=== PATIENT | male | born 1975 | race Caucasian/White ===

== ENCOUNTER 2023-05-01 10:50 | Emergency (ER) | payer OTHER, SELFPAY ==
[2023-05-01 10:56] VITALS: BP 186/102; PULSE 78; RESP 16; TEMP 36.7; O2SAT 99; BMI 32.2
--- NOTE | 2023-05-01 11:06 | XR_ITS ---
The [address] [address] Patient Name: MUNA OBREGON MRN: [id number] date: 1975 Sex: M Assigned Patient Location: ER Current Patient Location: ED.MAIN Accession/Order Number: [id number] Exam Date: 05/01/2023 11:13 Report Date: 05/01/2023 11:37 At the request of: KAMILLA LA Procedure: XR shoulder LT min 2V PROCEDURE: XR shoulder LT min 2V COMPARISON: None. HISTORY: decreased ROM, likely rotator cuff issue FINDINGS: BONES:No acute fracture or dislocation. The glenohumeral joint is intact. Moderate acromioclavicular joint osteoarthritis with 6 mm of subacromial spurring SOFT TISSUES:Negative. No visible soft tissue swelling. EFFUSION:None visible. OTHER: Negative. XR/XR shoulder LT min 2V IMPRESSION: Acromioclavicular joint osteoarthritis with subacromial spurring. Consider impingement syndrome Electronically authenticated by: WALT STRICKLAND Date: 05/01/2023 11:37
--- NOTE | 2023-05-01 11:06 | PC.NURSE ---
left shoulder pain and unable to lift left arm fully above head unless pt uses right hand to assist. No bruising or swelling observed, no obvious displacement and ER DR assessment complete.
--- NOTE | 2023-05-01 11:07 | ED.UPPEXIN1 ---
HPI - Extremity Injury (Upper) General Chief Complaint: Extremity Injury, Upper Stated Complaint: UPPER EXTREMITY INJURY Time Seen by Provider: 05/01/23 10:58 Source: patient Mode of arrival: walk-in History of Present Illness HPI narrative: 47-year-old male presents for an issue with his left shoulder. Since last week he's had difficulty lifting his arm up away from his body. It goes a little ways but not very far. There was no trauma or unusual activity. He doesn't have pain in the elbow or the contralateral shoulder. He's never had issues with his left shoulder. He does not have pain. Related Data Home Medications Medication Instructions Recorded Confirmed No Known Home Medications 05/01/23 05/01/23 Allergies Allergy/AdvReac Type Severity Reaction Status Date / Time aspirin Allergy Severe Verified 05/01/23 11:02 Penicillins Allergy Severe Verified 05/01/23 11:02 Review of Systems ROS Narrative A ten point review of systems is negative except as noted above. Exam Narrative Exam Narrative: Nurses note and vital signs reviewed and patient is not hypoxic. General: The patient appears well and in no apparent distress. Patient is resting comfortably on cart. Skin: Warm, dry, no pallor noted. There is no rash noted. Head: Normocephalic, atraumatic Eye: Normal conjunctiva, no drainage Ears, Nose, Mouth, and Throat: oral mucosa is moist. Nares patent. Cardiovascular: Regular Rate and Rhythm Respiratory: Patient is in no distress, no accessory muscle use, lungs are clear to auscultation, no wheezing, rales or rhonchi Back: non-tender GI: soft and nontender Musculoskeletal: left arm is not swollen. He has difficulty with arm abduction. Radial pulse 2+. Wrist and elbow have full range of motion. No deformity bruising or rash in the shoulder area. Neurological: A&O, normal speech Psychiatric: Cooperative Constitutional Vital Signs, click to edit/add: Last Vital Signs Temp 98.0 F 05/01/23 10:56 Pulse 78 05/01/23 10:56 Resp 16 05/01/23 10:56 BP 186/102 H 05/01/23 10:56 Pulse Ox 99 05/01/23 10:56 O2 Del Method Room Air 05/01/23 11:07 Course Vital Signs Vital signs: Vital Signs Temperature 98.0 F 05/01/23 10:56 Pulse Rate 78 05/01/23 10:56 Respiratory Rate 16 05/01/23 10:56 Blood Pressure 186/102 H 05/01/23 10:56 Pulse Oximetry 99 05/01/23 10:56 Oxygen Delivery Method Room Air 05/01/23 10:56 Temperature 98.0 F 05/01/23 10:56 Pulse Rate 78 05/01/23 10:56 Respiratory Rate 16 05/01/23 10:56 Blood Pressure 186/102 H 05/01/23 10:56 Pulse Oximetry 99 05/01/23 10:56 Oxygen Delivery Method Room Air 05/01/23 11:07 MDM - Extremity Injury (Upper) MDM Narrative Medical decision making narrative: my clinical impression is that he has a rotator cuff injury. The need for follow-up with orthopedics and the possible need for physical therapy was discussed. Treatment diagnosis and follow-up were discussed with the patient. Differential Diagnosis Differential diagnosis: Likely other (rotator cuff injury, calcific tendinitis, fracture, arthritis) Imaging Data left shoulder x-ray: My impression: no acute findings Discharge Plan Discharge Chief Complaint: Extremity Injury, Upper Clinical Impression: Injury of left rotator cuff Patient Disposition: Home, Self-Care Time of Disposition Decision: 11:25 Condition: Good Mode of Transportation: Private Vehicle Prescriptions / Home Meds: No Action No Known Home Medications Instructions: Rotator Cuff Injury (ED), Rotator Cuff Injury Exercises (DC) Additional Instructions: Follow-up with Dr. Mast Stand Alone Forms: Portal Instructions
[2023-05-01 11:53] VITALS: BP 168/90
== END 2023-05-01 11:55 | disposition home or self-care (01) ==
LOC: ER 11:36
PROVIDERS: Emergency Provider Emergency Medicine
DX: S46.002A Unspecified injury of muscle(s) and tendon(s) of the rotator cuff of left shoulder, initial encounter (principal); X58.XXXA Exposure to other specified factors, initial encounter
CPT/HCPCS: 73030; 99283

== ENCOUNTER 2023-06-19 09:23 | Outpatient (RCR) | payer OTHER, SELFPAY | END 2023-07-14 16:10 | disposition home or self-care (01) | LOC: PT 09:23 | PROVIDERS: Visit Provider Orthopaedic Surgery | DX: M25.512 Pain in left shoulder (principal) | CPT/HCPCS: 97110; 97140; 97161 ==

== ENCOUNTER 2023-07-11 10:54 | Emergency (ER) | payer OTHER, SELFPAY ==
[2023-07-11] VITALS (8 sets, daily range): BP systolic 150–188; BP diastolic 90–118; PULSE 69–117; RESP 10–22; TEMP 36.8; O2SAT 99; BMI 32.2
--- OUTSIDE RECORDS SUMMARY | 2023-07-11 11:07 | XMS_ITS | CCD ---
Author Organization [facility] Care Team Providers Care Drawing Frame Tender Name Role Phone REQUEST, DR NONE LISTED Primary Care Unavaila johana MUIR, DR TORO Admitting Unavailable GRILLIS, DR TORO Attending Unavailable GRILLIS, DR TORO Consulting Unavailable MARKER, DR LUCAS Consulting Unavailable LARA, MARIEL Consulting Unavailable WIECEK, DR NAZARIO Mcghee Admitting Unavailable MCDONALD, DR PAMELLA Lynn Consulting Unavailable REQUEST, DR SIMPSON LISTED Primary Care Unavaila ble WIECEK, DR NAZARIO Mcghee Attending Unavailable REINECK, DR BLU Ramirez Consulting Unavailabl e WIECEK, DR NAZARIO Mcghee Consulting Unavailable AGUBOSIM, ROSS Consulting Unavailable Allergies Allergy Classification Reported Allergen(s) Allergy Type Date of Onset Reaction(s) Facility Aspirin (1 source) Aspirin Drug Allergy 01-12-2016 [facility] Penicillins (antibiotic) (1 source) Penicillins Drug Allergy 01-12-2016 [facility] Repository Problems Active Problems Problem Classification Problem Date Documented Da te Episodic/Chronic Essential hypertension (1 source) Essential (primary) hypertension; Translations: [ESSENTIAL PRIMARY HYPERTENSION] Onset: 08-10-2020 Chronic Other injuries and conditions due to external causes (4 sources) Food in esophagus causing other injury, initial encounter; Translations: [FOOD ESOPH CAUS OTH INJURY INIT ENC] Onset: 07-24-2020 Episodic Other nutritional; endocrine; and metabolic disorders (1 source) Morbid (severe) obesity due to excess calories; Translations: [MORBID SEVERE OBES D/T EXCESS KARLA] Onset: 08-10-2020 Chronic Other nutritional; endocrine; and metabolic disorders (1 source) Body mass index (BMI) 37.0-37.9, adult; Translations: [BODY MASS INDEX BMI 37.0-37.9 ADULT] Onset: 08-10-2020 Chronic Substance-related disorders (1 source) Cannabis use, unspecified, uncomplicated; Translations: [CANNABIS USE UNS UNCOMPLICATED] Onset: 08-10-2020 Episodic Unclassified (1 source) ESOPHAGITIS UNSPEC WITHOUT BLEEDING; Translations: [ESOPHAGITIS UNSPEC WITHOUT BLEEDING] Onset: 02-25-2020 Viral infection (1 source) COVID-19; Translations: [COVID-19] Onset: 08-10-2020 Past or Other Problems Problem Classification Problem Date Documented Da te Episodic/Chronic E Codes: Natural/environment (1 source) Exposure to other specified factors, initial encounter; Translations: [EXPOSURE OTHER SPEC FACTORS INITIAL] Onset: 02-25-2020 Episodic Residual codes; unclassified (1 source) Acquired absence of other specified parts of digestive tract; Translations: [ACQ ABSENCE OTH PART DIGESTV TRACT] Onset: 02-25-2020 Episodic Screening and history of mental health and substance abuse codes (1 source) Personal history of nicotine dependence; Translations: [PERSONAL HISTORY OF NICOTINE DEPEND] Onset: 02-25-2020 Episodic Results Test Name Value Interpretation Reference Range Facility RESPIRATORY PANEL PLUSon Adenovirus Not detected Normal NOT DETECTED [facility] Comment on above: Performed By: #### R SPLUS #### [facility] [address] [place] [address] Domingo Lina B. Parapertusis Not detected Normal NOT DETECTED [facility] Comment on above: Performed By: #### R SPLUS #### [facility] [address] [place] [address] Domingo Lina B. Pertussis Not detected Normal NOT DETECTED [facility] Comment on above: Performed By: #### R SPLUS #### [facility] [address] [place] [address] Domingo Lina Chlamydia Pneumoniae Not detected Normal NOT DETECTED [facility] Comment on above: Performed By: #### R SPLUS #### [facility] [address] [place] [address] Domingo Lina Coronavirus 229E Not detected Normal NOT DETECTED [facility] Comment on above: Performed By: #### R SPLUS #### [facility] [address] [place] [address] Domingo Lina Coronavirus HKU1 Not detected Normal NOT DETECTED [facility] Comment on above: Performed By: #### R SPLUS #### [facility] [address] [place] [address] Domingo Lina Coronavirus NL63 Detected Abnormal NOT DETECTED [facility] Comment on above: Performed By: #### R SPLUS #### [facility] [address] [place] [address] Domingo Lina Coronavirus OC43 Not detected Normal NOT DETECTED [facility] Comment on above: Performed By: #### R SPLUS #### [facility] [address] [place] [address] Domingo Lina Influenza A H1 2009 Not detected Normal NOT DETECTED [facility] Comment on above: Performed By: #### R SPLUS #### [facility] [address] [place] [address] Domingo Lina Influenza B Not detected Normal NOT DETECTED [facility] Comment on above: Performed By: #### R SPLUS #### [facility] [address] [place] [address] Domingo Lina Metapneumovirus Not detected Normal NOT DETECTED [facility] Comment on above: Performed By: #### R SPLUS #### [facility] [address] [place] [address] Domingo Lina Mycoplas. Pneumoniae Not detected Normal NOT DETECTED [facility] Comment on above: Performed By: #### R SPLUS #### [facility] [address] [place] [address] Domingo Lina Parainfluenza 1 Not detected Normal NOT DETECTED [facility] Comment on above: Performed By: #### R SPLUS #### [facility] [address] [place] [address] Domingo Lina Parainfluenza 2 Not detected Normal NOT DETECTED [facility] Comment on above: Performed By: #### R SPLUS #### [facility] [address] [place] [address] Domingo Lina Parainfluenza 3 Not detected Normal NOT DETECTED [facility] Comment on above: Performed By: #### R SPLUS #### [facility] [address] [place] [address] Domingo Lina Parainfluenza 4 Not detected Normal NOT DETECTED [facility] Comment on above: Performed By: #### R SPLUS #### [facility] [address] [place] [address] Domingo Lina Rhino/Enterovirus Not detected Normal NOT DETECTED [facility] Comment on above: Performed By: #### R SPLUS #### [facility] [address] [place] [address] [place] RP2 Header 1 RESPIRATORY PANEL: VIRUSES Normal [facility] Comment on above: Performed By: #### R SPLUS #### [facility] [address] [place] [address] Domingo Lina RP2 Header 2 RESPIRATORY PANEL: BACTERIA Normal [facility] Comment on above: Performed By: #### R SPLUS #### [facility] [address] [place] [address] [place] RP2 Header 4 EUA SEE BELOW Normal [facility] Comment on above: Result Comment: This test is not yet approved or cleared by the [place] FDA. When there are no FDA-approved or cleared tests available, and other criteria are met, FDA can make tests available under an emergency access mechanism called an Emergency Use Authorization (EUA). The EUA for this test is supported by the [place] Manager of Health and Human Service?s (HHS?s) declaration that circumstances exist to justify the emergency use of in vitro diagnostics for the detection and/or diagnosis of the virus that causes COVID-19. This EUA will remain in effect (meaning this test can be used) for the duration of the COVID-19 declaration justifying emergency of IVDs, unless it is terminated or revoked by FDA (after which the test may no longer be used). Performed By: #### R SPLUS #### [facility] [address] [place] [address] Domingo Lina RSV Not detected Normal NOT DETECTED [facility] Comment on above: Performed By: #### R SPLUS #### [facility] [address] [place] [address] Domingo Lina SARS-CoV-2 (COVID-19) RNA DEAN+probe Ql (Unsp spec) Detected Invalid Interpretation Code NOT DETECTED [facility] Comment on above: Performed By: #### R SPLUS #### [facility] [address] [place], [place] [address] [place]ingo [place] Encounters Encounter Date Encounter Type Care Provider Facility Start: 07-24-2020 End: 07-25-[address] NAZARIO CABRERA Facility: Start: 02-18-2020 End: 02-19-2020 ambulatory NONE LISTED REQUEST Facility:[facility]1 Payers Date Payer Category Payer Unknown [id number] 1975 Unknown [id number] 1960 Unknown [id number] Clinical Note 07-24-2020 Note Date & Type Note Facility 07-24-2020 Note The [place], [place] NAME: MUNA OBREGON DATE OF : MEDICAL REC#: [id number] TIRE TRIMMER HAND: [id number] ADMIT DATE: 07/24/2020 19:35:00 QUARANTINE OFFICER DATE: 07/26/2020 07:00 DICTATING PHYSICIAN: NAZARIO CABRERA DICTATION DATE: 07/24/2020 19:00 HISTORY AND PHYSICAL EXAMINATION CHIEF COMPLAINT: Food bolus in the esophagus. HISTORY OF PRESENT ILLNESS: The patient is a 45 year-old man who presents to the ER with complaints of a food bolus in the esophagus, he was eating chicken nuno. The patient had a similar episode in January of [address] Muir took him to the Endoscopy Suite and he underwent removal of the food bolus. DICTATION ENDED HERE . . . . .New Dictation was created due to dictation ending. Electronically Authenticated and Edited by: Nazario Cabrera MD on 07/30/2020 06:51 AM EDT IFC Signed and Approved by: DR NAZARIO CABRERA . 07/30/2020 06:51:00 [facility] Clinical Note 07-24-2020 Note Date & Type Note Facility 07-24-2020 Note OPERATIVE NOTE OPERATION DATE: 07-24-20 ANESTHETIC:Monitored anesthesia care. PREOPERATIVE DIAGNOSIS:Food bolus in the esophagus. POSTOPERATIVE DIAGNOSIS:Food bullous in the upper third of the esophagus (chicken). PROCEDURE NAME:EGD with dislodgement of food bolus. DISPOSITION: To the PACU in fair condition. INDICATIONS: The psi a s 45 year-old man who was eating chicken nuno and the chicken got caught in his throat. He had a similar episode of eating chicken with food impaction in the esophagus requiring and EGD in January of 2020 that was done by Dr. Muir. PROCEDURE: The patient was brought into the OR, he was kept in the supine position with the head of his bed at approximately 45 degrees. He was intubated by the anesthesiologist. After sedation, the gastroscope was then advanced into the oropharynx and there was no evidence of any lesions. The patient has extremely poor dentition. The scope was then advanced into the esophagus. In the upper third there was chicken that was easily pushed into the stomach. There was irrigation of the esophagus from the food bolus. Upon entering the stomach the gastric mucosa was mildly inflamed, there was no evidence of any ulcers of erosions. The endoscope was advanced through the pylorus and into the duodenum. The duodenal bulb and sweep appeared normal. The scope was then removed. There was no evidence of any gastric or esophageal varices. No strictures in the esophagus. The patient tolerated the procedure without any difficulty and he needs to chew his food longer, cut the pieces of the food smaller and drink fluids even prior to eating, especially due to his poor dentition. [facility] Signed and Approved by: DR NAZARIO CABRERA . 07/30/2020 06:49:00 [facility] Summary Purpose Family History No Family History Records Found Advance Directives No Advanced Directives Records Found Additional Source Comments (unrecognized sect ion and content) No Status Records Found INFORMATION SOURCE (unrecogn ized section and content) DATE CREATED AUTHOR 08/18/2020 [facility] FOR RECORDS PERTAINING TO PATIENTS WHO ARE OR HAVE BEEN ENROLLED IN A CHEMICAL DEPENDENCY/SUBSTANCEABUSE PROGRAM, SOME INFORMATION MAY BE OMITTED. This clinical summary was aggregated from multiple sources. Caution should be exercised in using it in the provision of clinical care. This summary normalizes information from multiple sources, and as a consequence, information in this document may materially change the coding, format and clinical context of patient data. In addition, data may be omitted in some cases. CLINICAL DECISIONS SHOULD BE BASED ON THE PRIMARY CLINICAL RECORDS. [facility]. provides no warranty or guarantee of the accuracy or completeness of information in this document.
--- NOTE | 2023-07-11 11:09 | ECG_ITS ---
The [facility] Test Date: 2023-07-11 Pat Name: MUNA OBREGON Department: Room: - Gender: Male Gum Remover: : 1975 Requested By: Order Number: [id number] Reading MD: YUDI FARIAS Measurements Intervals [place] Rate: 75 P: 26 KS: 156 QRS: 37 QRSD: 96 T: 30 QT: 360 QTc: 388 Interpretive Statements 1100 Sinus rhythm 1102 Sinus arrhythmia 9110 normal ECG Compared to ECG 02/18/2020 20:52:21 No significant changes Electronically Signed On 07-12-2023 6:45:35 EDT by YUDI FARIAS
--- NOTE | 2023-07-11 11:09 | CT_ITS ---
The [address] [address] Patient Name: MUNA OBREGON MRN: [id number] date: 1975 Sex: M Assigned Patient Location: ER Current Patient Location: ER Accession/Order Number: [id number] Exam Date: 07/11/2023 11:25 Report Date: 07/11/2023 11:45 At the request of: KAMILLA LA Procedure: CT head/brain wo con EXAM: CT head/brain wo con HISTORY: Tinnitus COMPARISON: None. TECHNIQUE: Axial CT images were obtained of the head without intravenous contrast. Multiplanar reconstructions were performed. FINDINGS: No acute intracranial hemorrhage. No acute loss of figueroa/white differentiation. The ventricles and sulci are normal in appearance. The osseous structures are unremarkable. No soft tissue abnormality identified. The paranasal sinuses and mastoid air cells are clear. CT/CT head/brain wo con IMPRESSION: 1. No acute intracranial abnormality. Electronically authenticated by: ELVER GONZALES Date: 07/11/2023 11:45
--- NOTE | 2023-07-11 11:09 | ED_ITS ---
HPI - Ear Problem General Chief complaint: Ear Stated complaint: RINGING IN EARS Time Seen by Provider: 07/11/23 11:04 Source: patient Mode of arrival: walk-in Limitations: no limitations History of Present Illness HPI Narrative: 48-year-old male presents for intermittent ringing in his ears that he has had for 5 days. He has never had issues like this before. No fever or cough or vomiting. He has not taken any aspirin. He is on no medications. Blood pressure was noted to be elevated at triage. He does not have a headache. No cough or sore throat. Related Data Home Medications ?Medication ?Instructions ?Recorded ?Confirmed No Known Home Medications 05/01/23 07/11/23 Allergies Allergy/AdvReac Type Severity Reaction Status Date / Time aspirin Allergy Severe Verified 05/01/23 11:02 Penicillins Allergy Severe Verified 05/01/23 11:02 Review of Systems ROS Narrative A ten point review of systems is negative except as noted above. Exam Narrative Exam Narrative: Nurses note and vital signs reviewed and patient is not hypoxic. General: The patient appears well and in no apparent distress. Patient is resting comfortably on cart. Skin: Warm, dry, no pallor noted. There is no rash noted. Head: Normocephalic, atraumatic Eye: Normal conjunctiva, no drainage Ears, Nose, Mouth, and Throat: oral mucosa is moist. Nares patent. TMs are nonerythematous. External canals are normal in appearance. No cerumen present. Cardiovascular: Regular Rate and Rhythm Respiratory: Patient is in no distress, no accessory muscle use, lungs are clear to auscultation, no wheezing, rales or rhonchi Back: non-tender, no CVA tenderness bilaterally to percussion. GI: Soft and nontender Musculoskeletal: The patient has no evidence of calf tenderness, no pitting edema, symmetrical pulses noted bilaterally Neurological: A&O, normal speech Psychiatric: Cooperative Constitutional Vital Signs, click to edit/add: Last Vital Signs Temp 98.2 F 07/11/23 10:59 Pulse 80 07/11/23 10:59 Resp 20 07/11/23 10:59 BP 188/118 H 07/11/23 10:59 Pulse Ox 99 07/11/23 10:59 O2 Del Method Room Air 07/11/23 10:59 Course Vital Signs Vital signs: Vital Signs Temperature 98.2 F 07/11/23 10:59 Pulse Rate 80 07/11/23 10:59 Respiratory Rate 20 07/11/23 10:59 Blood Pressure 188/118 H 07/11/23 10:59 Pulse Oximetry 99 07/11/23 10:59 Oxygen Delivery Method Room Air 07/11/23 10:59 Temperature 98.2 F 07/11/23 10:59 Pulse Rate 80 07/11/23 10:59 Respiratory Rate 20 07/11/23 10:59 Blood Pressure 188/118 H 07/11/23 10:59 Pulse Oximetry 99 07/11/23 10:59 Oxygen Delivery Method Room Air 07/11/23 10:59 Medical Decision Making MDM Narrative Medical decision making narrative: He has a normal physical exam and a negative workup. His blood pressure has improved without intervention here. I discussed that blood pressure with him and he is going to obtain a PCP, list provided. He was instructed to have blood pressure rechecked within a week and if it stays elevated he may need to be on blood pressure medication. Treatment diagnosis and follow-up were discussed with the patient. Differential Diagnosis Differential Diagnosis: Hypertension, tinnitus, otitis media, cerumen impaction Lab Data Lab results reviewed: Yes I reviewed the patient's lab results Lab results narrative: Normal CBC and BMP Imaging Data CT scan - head: Radiologist's impression: ITS Impressions Head CT 07/11/23 11:09 IMPRESSION: 1. No acute intracranial abnormality. Electronically authenticated by: ELVER GONZALES Date: 07/11/2023 11:45 ECG Data Attestation: I personally reviewed and interpreted this ECG as follows: (EKG on my interpretation shows normal sinus rhythm with a rate of 75.) Discharge Plan Discharge Stand Alone Forms: Portal Instructions Chief Complaint: Ear Clinical Impression: Elevated blood pressure reading, Tinnitus Patient Disposition: Home, Self-Care Time of Disposition Decision: 12:36 Condition: Good Mode of Transportation: Private Vehicle Prescriptions / Home Meds: No Action No Known Home Medications Print Language: Mongolian Instructions: Hypertension (ED), Tinnitus (ED) Additional Instructions: Follow-up with PCP, list provided Referrals: Physician,Non-Staff, MD [Primary Care Provider] - 1 week
[2023-07-11 11:25] LABS: Basophils Percent Auto 0.6 % (0.2-2.0); Eosinophils Percent Auto 0.2 % (0.9-7.0); Hematocrit 43.7 % (42.0-54.0); Hemoglobin 14.5 g/dL (14.0-18.0); Immature Granulocytes Abs Auto 0.01 10^3/uL (0.00-0.03); Immature Granulocytes Pct Auto 0.2 % (0.0-0.5); Lymphocytes Absolute Auto 1.7 10^3/uL (1.2-3.8); Lymphocytes Percent Auto 26.4 % (20.5-60.0); Mean Corpuscular HGB Conc 33.2 g/dL (29.9-35.2); Mean Corpuscular Hemoglobin 30.9 pg (25.9-34.0); Mean Corpuscular Volume 93.2 fL (80.0-94.0); Mean Platelet Volume 9.6 fL (9.5-13.5); Monocytes Absolute Auto 0.4 10^3/uL (0.3-0.8); Monocytes Percent Auto 6.2 % (1.7-12.0); Neutrophils Absolute Auto 4.2 10^3/uL (1.4-6.5); Neutrophils Percent Auto 66.4 % (43.0-75.0); Platelet Count 229 10^3/uL (150-450); Red Blood Count 4.69 10^6/uL (4.70-6.10); White Blood Count 6.3 10^3/uL (4.0-11.0)
[2023-07-11 11:42] LABS: Anion Gap 15.6; BUN Creatinine Ratio 8.7; Calcium 9.5 mg/dL (8.5-10.1); Carbon Dioxide 26.3 mmol/L (21.0-32.0); Chloride 102 mmol/L (98-107); Estimated GFR (African America >60 (>=60); Estimated GFR (Non-African Ame >60 (>=60); Glucose 98 mg/dL (74-106); Potassium 3.9 mmol/L (3.5-5.1); Sodium 140 mmol/L (136-145)
== END 2023-07-11 12:54 | disposition home or self-care (01) ==
PROVIDERS: Emergency Provider Emergency Medicine
DX: H93.13 Tinnitus, bilateral (principal); I10 Essential (primary) hypertension
CPT/HCPCS: 36415; 70450; 80048; 81001; 85025; 93005; 99285

== ENCOUNTER 2023-11-26 07:06 | Outpatient (OUT) | payer OTHER, SELFPAY ==
--- OUTSIDE RECORDS SUMMARY | 2023-11-26 07:08 | XMS_ITS | CCD ---
Author Organization [facility] Care Team Providers Care Sap Security Consultant Name Role Phone REQUEST, DR NONE LISTED Primary Care Unavaila johana MUIR, DR TORO Admitting Unavailable GRILLIS, DR TORO Attending Unavailable GRILLIS, DR TORO Consulting Unavailable MARKER, DR LUCAS Consulting Unavailable LARA, MARIEL Consulting Unavailable WIECEK, DR NAZARIO Mcghee Admitting Unavailable MCDONALD, DR PAMELLA Lynn Consulting Unavailable REQUEST, DR SIMPSON LISTED Primary Care Unavaila ble KADEECEK, DR NAZARIO Mcghee Attending Unavailable CLEMENTEECK, DR BLU Ramirez Consulting Unavailabl e WIECEK, DR NAZARIO Mcghee Consulting Unavailable AGUBOSIM, ROSS Consulting Unavailable Allergies Allergy Classification Reported Allergen(s) Allergy Type Date of Onset Reaction(s) Facility Aspirin (1 source) Aspirin Drug Allergy 01-12-2016 [facility] Penicillins (antibiotic) (1 source) Penicillins Drug Allergy 01-12-2016 [facility] Problems Active Problems Problem Classification [...] Adenovirus Not detected Normal NOT DETECTED [facility] Comment on above: Performed By: #### R SPLUS #### [facility] [address] [place] [address] Domingo Lina B. Parapertusis Not detected Normal NOT DETECTED [facility] Comment on above: Performed By: #### R SPLUS #### [facility] [address] [place] [address] Domingo Lina B. Pertussis Not detected Normal NOT DETECTED The [facility] Comment on above: Performed By: #### R SPLUS #### [facility] [address] [place] [address] Domingo Lina Chlamydia Pneumoniae Not detected Normal NOT DETECTED [facility] Comment on above: Performed By: #### R SPLUS #### [facility] [address] [place] [address] Domingo Lina Coronavirus 229E Not detected Normal NOT DETECTED [facility] Comment on above: Performed By: #### R SPLUS #### [facility] [address] [place] [address] Domingo Lina Coronavirus HKU1 Not detected Normal NOT DETECTED [facility] Comment on above: Performed By: #### R SPLUS #### [facility] [address] [place] [address] Domingo Lina Coronavirus NL63 Detected Abnormal NOT DETECTED The [facility] Comment on above: Performed By: #### R SPLUS #### [facility] [address] [address] Domingo Lina Coronavirus OC43 Not detected Normal NOT DETECTED [facility] Comment on above: Performed By: #### R SPLUS #### [facility] [address] [place] [address] Domingo Lina Influenza A H1 2009 Not detected Normal NOT DETECTED [facility] Comment on above: Performed By: #### R SPLUS #### [facility] [address] [place] [address] Domingo Lina Influenza B Not detected Normal NOT DETECTED [facility] Comment on above: Performed By: #### R SPLUS #### [facility] [address] [place] [address] Domingo Lina Metapneumovirus Not detected Normal NOT DETECTED [facility] Comment on above: Performed By: #### R SPLUS #### [facility] [address] [place] [address] Domingo Lina Mycoplas. Pneumoniae Not detected Normal NOT DETECTED [facility] Comment on above: Performed By: #### R SPLUS #### [facility] [address] [place] [address] Domingo Lina Parainfluenza 1 Not detected Normal NOT DETECTED [facility] Comment on above: Performed By: #### R SPLUS #### [facility] [address] [place] [address] Domingo Lina Parainfluenza 2 Not detected Normal NOT DETECTED [facility] Comment on above: Performed By: #### R SPLUS #### [facility] [address] [place] [address] Domingo Lina Parainfluenza 3 Not detected Normal NOT DETECTED [facility] Comment on above: Performed By: #### R SPLUS #### [facility] [address] [place] [address] Domingo Lina Parainfluenza 4 Not detected Normal NOT DETECTED [facility] Comment on above: Performed By: #### R SPLUS #### [facility] [address] [place], [place] [address] Rhino/Enterovirus Not detected Normal NOT DETECTED [facility] Comment on above: Performed By: #### R SPLUS #### [facility] [address] [place] [address] Lina RP2 Header 1 RESPIRATORY PANEL: VIRUSES Normal [facility] Comment on above: Performed By: #### R SPLUS #### [facility] [address] [place] [address] RP2 Header 2 RESPIRATORY PANEL: BACTERIA Normal [facility] Comment on above: Performed By: #### R SPLUS #### [facility] [address] [place] [address] Lina RP2 Header 4 EUA SEE BELOW Normal The [facility] Comment on above: Result Comment: This test is not yet approved or cleared by the [place] FDA. When there are no FDA-approved or cleared tests available, and other criteria are met, FDA can make tests available under an emergency access mechanism called an Emergency Use Authorization (EUA). The EUA for this test is supported by the Laboratory Coordinator of Health and Human Service?s (HHS?s) declaration [...] used). Performed By: #### R SPLUS #### [facility] [address] [place], [place] [address] RSV Not detected Normal NOT DETECTED [facility] Comment on above: Performed By: #### R SPLUS #### [facility] [address] [place], [place] [address] SARS-CoV-2 (COVID-19) RNA DEAN+probe Ql (Unsp spec) Detected Invalid Interpretation Code NOT DETECTED [facility] Comment on above: Performed By: #### R SPLUS #### [facility] [address] [place], [place] [address] Domingo Mills Encounters Encounter Date Encounter Type Care Provider Facility Start: 07-24-2020 End: 07-25-[address] NAZARIO CABRERA Facility: Start: 02-18-2020 End: 02-19-[address] NONE LISTED REQUEST Facility:[facility] Payers Date Payer Category Payer Unknown [id number] 1975 Unknown [id number] 1960 Unknown [id number] Clinical Note 07-24-2020 Note Date & Type Note Facility 07-24-2020 Note The [place], [place] NAME: MUNA OBREGON DATE OF : MEDICAL REC#: [id number] CHEF MANAGER: [id number] GAN ADMIT DATE: 07/24/2020 19:35:00 WEIGHT INSPECTOR DATE: 07/26/2020 07:00 DICTATING PHYSICIAN: NAZARIO CABRERA [...] DR NAZARIO CABRERA . 07/30/2020 06:51:00 [facility] Clinical Note 07-24-2020 Note Date & [...] eating, especially due to his poor dentition. [facility] Signed and Approved by: DR NAZARIO CABRERA . 07/30/2020 06:49:00 [facility] Summary Purpose Family History No Family History Records Found Advance Directives No Advanced Directives Records Found Additional Source Comments (unrecognized sect ion and content) No Status Records Found INFORMATION SOURCE (unrecogn ized section and content) DATE CREATED AUTHOR 08/18/2020 [facility] FOR RECORDS PERTAINING TO PATIENTS WHO ARE [...] BE BASED ON THE PRIMARY CLINICAL RECORDS. [facility] [employer] provides no warranty or guarantee of the accuracy or completeness of information in this document.
[2023-11-26 07:35] LABS: Basophils Percent Auto 0.6 % (0.2-2.0); Eosinophils Absolute Auto 0.1 10^3/uL (0.0-0.7); Eosinophils Percent Auto 1.6 % (0.9-7.0); Hematocrit 41.8 % (42.0-54.0); Hemoglobin 13.9 g/dL (14.0-18.0); Immature Granulocytes Abs Auto 0.01 10^3/uL (0.00-0.03); Immature Granulocytes Pct Auto 0.2 % (0.0-0.5); Lymphocytes Absolute Auto 1.9 10^3/uL (1.2-3.8); Lymphocytes Percent Auto 29.8 % (20.5-60.0); Mean Corpuscular HGB Conc 33.3 g/dL (29.9-35.2); Mean Corpuscular Hemoglobin 31.4 pg (25.9-34.0); Mean Corpuscular Volume 94.6 fL (80.0-94.0); Mean Platelet Volume 9.5 fL (9.5-13.5); Monocytes Absolute Auto 0.4 10^3/uL (0.3-0.8); Monocytes Percent Auto 6.2 % (1.7-12.0); Neutrophils Absolute Auto 3.9 10^3/uL (1.4-6.5); Neutrophils Percent Auto 61.6 % (43.0-75.0); Platelet Count 201 10^3/uL (150-450); Red Blood Count 4.42 10^6/uL (4.70-6.10); Red Cell Distribution Width 12.2 % (11.0-15.0); White Blood Count 6.3 10^3/uL (4.0-11.0)
[2023-11-26 07:51] LABS: Estimated Average Glucose 100 mg/dL; Glycohemoglobin A1C 5.1 % (4.5-6.2)
[2023-11-26 09:59] LABS: Alanine Aminotransferase 23 U/L (16-63); Albumin Globulin Ratio 0.8; Albumin Level 3.3 g/dL (3.4-5.0); Alkaline Phosphatase 160 U/L (46-116); Aspartate Amino Transferase 22 U/L (15-37); BUN Creatinine Ratio 11.7; Bilirubin Total 0.4 mg/dL (0.2-1.0); Calcium 9.1 mg/dL (8.5-10.1); Carbon Dioxide 32.9 mmol/L (21.0-32.0); Chloride 103 mmol/L (98-107); Chol HDL Ratio 2.3; Cholesterol 130 mg/dL (<=200); Estimated GFR (African America >60 (>=60); Estimated GFR (Non-African Ame >60 (>=60); Free T3 2.54 pg/mL (2.18-3.98); Globulin 4.4 g/dL; Glucose 108 mg/dL (74-106); HDL Cholesterol 57 mg/dL (40-60); Potassium 3.9 mmol/L (3.5-5.1); Sodium 142 mmol/L (136-145); Thyroid Stimulating Hormone 0.936 uIU/mL (0.358-3.740); Total Protein 7.7 g/dL (6.4-8.2); Triglycerides 25 mg/dL (<=150)
[2023-11-27 03:12] LABS: Insulin 13.7 uIU/mL (2.6-24.9)
== END 2023-11-26 07:07 | disposition home or self-care (01) ==
LOC: LAB 07:07
PROVIDERS: PCP Nurse Practitioner Family; Visit Provider Nurse Practitioner Family
DX: Z00.00 Encounter for general adult medical examination without abnormal findings (principal)
CPT/HCPCS: 36415; 80053; 80061; 83036; 83525; 84436; 84443; 84481; 85025

== ENCOUNTER 2023-12-03 16:02 | Outpatient (REF) | payer OTHER, SELFPAY ==
[2023-12-04 14:55] LABS: Internal Control Within Normal Limits; Occult Blood Negative
== END 2023-12-03 16:03 | disposition home or self-care (01) ==
LOC: LAB 16:02
PROVIDERS: PCP Nurse Practitioner Family; Visit Provider Nurse Practitioner Family
DX: Z00.00 Encounter for general adult medical examination without abnormal findings (principal)
CPT/HCPCS: G0328